=== PATIENT | female | born 1985 | race Caucasian/White ===

== ENCOUNTER 2016-05-23 10:09 | Emergency (ER) | payer MEDICAID ==
[~2016-05-23] VITALS: Ht 162.6 cm; Wt 72.1 kg
[2016-05-23 10:35] VITALS: BP 112/95
[2016-05-23] MEDS ORDERED: ONDANSETRON ODT 4 MG TAB PO ONE (11:45)
[2016-05-23] MEDS ORDERED: KETOROLAC TROMETH 60MG/2ML VIAL IM ONE (11:45)
== END 2016-05-23 12:22 | disposition home or self-care (01) ==
LOC: ER 10:18 → UNDOADMIN 10:19 → TELE 10:19 → ER 12:15
DX: F11.23 Opioid dependence with withdrawal (principal); M54.5 Low back pain; G89.29 Other chronic pain; R19.7 Diarrhea, unspecified
CPT/HCPCS: 96372; 99283; J1885; Q0162